=== PATIENT | female | born 1965 | race Caucasian/White ===

== ENCOUNTER 2020-02-05 20:21 | Emergency (ER) | payer OTHER ==
[~2020-02-05] VITALS: Ht 170.2 cm; Wt 86.4 kg
[2020-02-05 20:27] VITALS: BP 148/85; TEMP 98.6
[2020-02-05 21:47] VITALS: PULSE 75
== END 2020-02-05 21:47 | disposition home or self-care (01) ==
LOC: COL.ER 20:21
DX: S61.011A Laceration without foreign body of right thumb without damage to nail, initial encounter (principal); W29.0XXA Contact with powered kitchen appliance, initial encounter; Y93.G1 Activity, food preparation and clean up; Y92.009 Unspecified place in unspecified non-institutional (private) residence as the place of occurrence of the external cause